=== PATIENT | female | born 1985 | race African-American/Black ===

== ENCOUNTER 2018-02-07 09:01 | Emergency (ER) | payer OTHER, SELFPAY ==
[2018-02-07] MEDS ORDERED: Dexamethasone 10 MG/ML VIAL ONE ×2 (09:46→09:55)
[2018-02-07] MEDS ORDERED: Ibuprofen 800 MG TAB ONE ×3 (09:46→09:55)
== END 2018-02-07 10:00 | disposition home or self-care (01) ==
LOC: MADERS 09:01
DX: J32.9 Chronic sinusitis, unspecified (principal); F17.210 Nicotine dependence, cigarettes, uncomplicated; I73.9 Peripheral vascular disease, unspecified; Z79.01 Long term (current) use of anticoagulants
CPT/HCPCS: 96372; J1100

== ENCOUNTER 2018-10-19 17:42 | Emergency (ER) | payer SELFPAY | END 2018-10-19 18:41 | disposition home or self-care (01) | LOC: MADERS 17:42 | DX: J11.1 Influenza due to unidentified influenza virus with other respiratory manifestations (principal); F17.210 Nicotine dependence, cigarettes, uncomplicated | CPT/HCPCS: 99283 ==